=== PATIENT | male | born 1960 | race Caucasian/White ===

== ENCOUNTER 2021-07-27 12:10 | Emergency (ER) | payer MEDICAID, OTHER ==
[~2021-07-27] VITALS: Ht 172.7 cm; Wt 90.9 kg
[~2021-07-27 12:10] MED LIST: BENZ1TAB70 PO; CLOZ100T32 PO; DIPH50 PO; DOCU250C28 PO; ESOM20CA31 PO; FLUD25I IM; METF-1211 PO; METO25 PO; SIMV-261 PO
[2021-07-27 12:36] VITALS: BP 172/91
[2021-07-27] MEDS ORDERED: FOLI0.4T6 PO (14:16)
[2021-07-27] MEDS ORDERED: ATOR10TA84 PO (14:16)
[2021-07-27] MEDS ORDERED: DIVA-80 PO (14:16)
[2021-07-27] MEDS ORDERED: OLAN7.5T22 PO (14:16)
[2021-07-27] MEDS ORDERED: AMLO-258 PO (14:16)
[2021-07-27] MEDS ORDERED: QUET100T PO (14:18)
[2021-07-27] MEDS ORDERED: HALO10 PO (14:18)
== END 2021-07-27 14:27 | disposition home or self-care (01) ==
LOC: EMS 12:10
DX: F20.9 Schizophrenia, unspecified (principal); I10 Essential (primary) hypertension; E11.9 Type 2 diabetes mellitus without complications; E78.00 Pure hypercholesterolemia, unspecified; Z79.899 Other long term (current) drug therapy; Z79.84 Long term (current) use of oral hypoglycemic drugs
CPT/HCPCS: 82962; 99283